=== PATIENT | male | born 1950 ===

== ENCOUNTER 2022-06-26 07:30 | Observation (INO) ==
[2022-07-18] MEDS ORDERED: Naloxone 0.4 mg VIAL 0.4 mg/ml 1 ml VIAL IV PRN (12:56)
[2022-07-18] MEDS ORDERED: Ondansetron 4 mg VIAL 2 MG/ML 2 ml VIAL IV PRN (12:56)
[2022-07-19] MEDS ORDERED: Lactated Ringers 1000 ml BAG 1,000 ML IV SCH (06:00)
[2022-07-19] MEDS ORDERED: Buffered Lidocaine 1% SYRIN 1 ml INTRADERM ONE (06:00)
[2022-07-19] MEDS ORDERED: ceFAZolin 2 GM in NS PREMIX 2 GM/100 ML BAG IVPB ONE (07:18)
[2022-07-19 07:32] LABS: INR 1.18 (0.89-1.11)
[2022-07-19] MEDS ORDERED: Midazolam 2 mg/2 ml VIAL 1 mg/ml 2 ml VIAL (2 mg) ONE (08:12)
[2022-07-19] MEDS ORDERED: fentaNYL 100 mcg/2 ml 50 MCG/ML VIAL ONE ×3 (08:12→12:16)
[2022-07-19] MEDS ORDERED: Rocuronium 50 mg VIAL 10 mg/ml 5 ml VIAL (50 mg) ONE (08:50)
[2022-07-19] MEDS ORDERED: Propofol 10 MG/ML 20 ML BTL ONE (08:50)
[2022-07-19] MEDS ORDERED: Lidocaine 2% PF 5 ML VIAL ONE (08:50)
[2022-07-19] MEDS ORDERED: Phenylephrine 40 mcg/mL 10mL (400mcg) SYRINGE ONE (09:53)
[2022-07-19] MEDS ORDERED: Dexamethasone IV 4 MG/ML VIAL 1 ml VIAL ONE (09:57)
[2022-07-19] MEDS ORDERED: Ondansetron 4 mg VIAL 2 MG/ML 2 ml VIAL ONE (09:57)
[2022-07-19] MEDS ORDERED: Acetaminophen IV 1 GM/100ML 1,000 MG/100 ML BAG IV ONE (10:13)
[2022-07-19] MEDS ORDERED: ROPIVACAINE 5 MG/ML 30 ML BTL (0.5%) ONE (10:29)
[2022-07-19] MEDS ORDERED: Lactulose 30 ml UDC PO PRN (12:06)
[2022-07-19] MEDS ORDERED: Ondansetron 4 mg VIAL 2 MG/ML 2 ml VIAL IV PRN (12:06)
[2022-07-19] MEDS ORDERED: Ondansetron ODT 4 mg TAB 4 MG TAB PO PRN (12:06)
[2022-07-19] MEDS ORDERED: Magnesium Hydroxide LIQ 30 ML UDC PO PRN (12:06)
[2022-07-19] MEDS ORDERED: Morphine 2 MG/ML SYRINGE IV PRN (12:06)
[2022-07-19] MEDS: fentaNYL 100 mcg/2 ml 50 MCG/ML VIAL IV PRN ×3 (12:18→12:47)
[2022-07-19] MEDS: Lactated Ringers 1000 ml BAG 1,000 ML IV SCH (13:34)
[2022-07-19] MEDS: ceFAZolin 1 GM ADVAN 1 GM in NS 0.9% 50 ML 50 ML IVPB SCH (17:41)
[2022-07-19] MEDS: Magnesium Hydroxide LIQ 30 ML UDC PO SCH (20:40)
[2022-07-20] MEDS ORDERED: Metoclopramide 5 MG/ML VIAL (10 mg) IV SLOW PU PRN (00:51)
[2022-07-20] MEDS: Lactated Ringers 1000 ml BAG 1,000 ML IV SCH (00:52)
[2022-07-20] MEDS: ceFAZolin 1 GM ADVAN 1 GM in NS 0.9% 50 ML 50 ML IVPB SCH ×2 (01:14→10:09)
[2022-07-20 07:02] LABS: Hematocrit 37 % (42-52); Hemoglobin 12.6 g/dL (14.0-18.0); Platelet Count 198 10^3/uL (150-450)
[2022-07-20 07:15] LABS: Calcium 8.7 mg/dL (8.6-10.3); Potassium 4.4 mmol/L (3.5-5.0); eGFR CKD-EPI 95.1 (>60)
[2022-07-20] MEDS: Magnesium Hydroxide LIQ 30 ML UDC PO SCH (08:18)
[2022-07-20] MEDS ORDERED: Vitamin THERAPEUTIC TAB PO SCH (09:00)
[2022-07-20 11:22] VITALS: BP 134/75
== END 2022-07-20 13:15 | disposition home or self-care (01) ==
LOC: AA 07-19 06:41 → INTOOBSV 07-19 06:41 → SSU 07-19 13:26
PROVIDERS: ADMIT Orthopaedic Surgery Adult Reconstructive Orthopaedic Surgery; ATTEND Orthopaedic Surgery Adult Reconstructive Orthopaedic Surgery